=== PATIENT | female | born 1980 | race Caucasian/White ===

== ENCOUNTER 2019-02-22 16:39 | Emergency (ER) | payer BC ==
[2019-02-22] MEDS ORDERED: LACTATED RINGERS SOLUTION 1000 ML INFUS.BAG IV ONE ×2 (16:43→17:30)
[2019-02-22] MEDS ORDERED: ACETAMINOPHEN 1000 MG/100 ML VIAL (NON FORMULARY) IVPB ONE (16:43)
--- NOTE | 2019-02-22 16:53 | PDOC ---
Attending Attestation - Resident Resident Name: Ryan Almanza - ED Attending Attestation I have performed the following: I have examined & evaluated the patient, The case was reviewed & discussed with the resident, I agree w/resident's findings & plan, Exceptions are as noted - HPI HPI: 38 yo F no significant PMH presents with abdominal cramping associated with N/V/ D since 4:30 this morning. +Fever, chills, malaise. No cough, congestion. Her child at home has diarrhea but it is not as severe, and no vomiting. Emesis is NBNB. No recent travel. - Physicial Exam PE: GENERAL: Awake, alert, and fully oriented, in no acute distress. +Mild pallor HEAD: No signs of trauma EYES: PERRLA, EOMI, sclera anicteric, conjunctiva clear ENT: Auricles normal inspection, hearing grossly normal, nares patent, oropharynx clear without exudates. Dry mucosa NECK: Normal ROM, supple, no lymphadenopathy, JVD, or masses LUNGS: Breath sounds equal, clear to auscultation bilaterally. No wheezes, and no crackles HEART: Tachycardic with regular rhythm, normal S1 and S2, no murmurs, rubs or gallops ABDOMEN: Soft, nontender, normoactive bowel sounds. No guarding, no rebound. No masses EXTREMITIES: Normal range of motion, no edema. No clubbing or cyanosis. No cords, erythema, or tenderness NEUROLOGICAL: Cranial nerves II through XII grossly intact. Normal speech, normal gait. Motor and sensation intact SKIN: Warm, Dry, normal turgor, no rashes or lesions noted. - Medical Decision Making Abdomen is soft and benign. In light of sick contact at home, suspect this is likely a viral syndrome. Will give plenty of IV hydration, check labs, and give antipyretic. Likely DC home.
[2019-02-22 16:57] VITALS: BMI 25.0
--- NOTE | 2019-02-22 17:16 | PDOC ---
History of Present Illness - General Chief Complaint: Vomiting/Diarrhea Stated Complaint: FEVER,DIARHEA,VOMINGING,BLOOD IN URINE,LBA,LABD PA Time Seen by Provider: 02/22/19 16:41 History Source: Patient Exam Limitations: No Limitations - History of Present Illness Initial Comments: HPI: 38 y/o female presenting to ER complaining of LLQ abdominal pain with nausea , vomiting, and diarrhea since approx. 4:30 am this morning. Emesis described as nonblood, nonbilious and yellow in color. Endorses fever (approx 101, orally) , chills, and blood in urine (thinks it may be from wiping). Denies observing blood in stool. Pediatric child in household also with diarrheal symptoms but not as severe. Pt denies recent travel. PCP: Dr. 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 Multiple kids always sick. - Female partner Medical Hx: - Taking Synthroid while attempting to get (has not undergoing IVF/ insemination) - Prothrombin Clotting Disorder (thinks Factor V Leiden) Review of Systems: In addition to that documented in the HPI above, the additional ROS was obtained : Constitutional: Endorses fevers and chills Head: Denies vision changes ENMT: Denies sore throat CV: Denies chest pain Resp: Denies SOB GI: Per HPI : Denies painful urination, increased urinary frequency, vaginal discharge MSK: Denies recent trauma Skin: Denies new rashes Neuro: Denies new numbness or tingling or weakness Endocrine: Denies polyuria Heme: Denies bleeding or bruising Physical Examination: Constitutional: Well-developed, well-nourished, sickly appearing adult female in no acute distress or obvious discomfort. Found semi-fowlers on hospital bed. Alert and oriented x4. Answered all questions appropriately and completely. Speech was non-labored, non-pressured. Head: Normocephalic. No obvious external signs of trauma. Eyes: Sclerae white. Conjunctiva moist and not injected. Ears: Hearing grossly intact. Nose: No nasal discharge. Throat: Oral cavity and pharynx normal. No inflammation, swelling, exudate, or lesions. Teeth and gingiva in good general condition. Moist mucosal membranes. Neck: Supple, trachea is midline. Cardiovascular / Chest: Tachycardic rate with regular rhythm. No murmur, rubs, clicks, or gallops. Peripheral pulses: radial pulses full. Respiratory: Breathing unlabored. Equal chest rise and fall. Clear to auscultation bilaterally. No stridor, no wheezing, no rhonchi. Gastrointestinal: abdomen is tender in LLQ without rebound or guarding, otherwise soft and non-distended. No hepatosplenemegaly. No pulsatile masses. No overlying skin lesions or obvious signs of trauma. Neuro: Alert and oriented. Moving all four extremities spontaneously. Skin: Feverish but dry and intact. No bruising, rashes, or other lesions. : No R or L CVA tenderness. Psych: Affect: appropriate. Mood: normal. MDM: *Reviewed vital signs, nursing notes, and prior visit documentation (if available). 38 y/o previously healthy female presenting with N/V/D, LLQ abd pain, tachycardia, febrile, and borderline hypotension (with maintained MAP). Physical exam as described above. Suspect possible UTI given hematuria. Suspect possible viral gastroenteritis with dehydration. Low suspicion for diverticulitis. ED sepsis order set initiated. Ordered LR IVFB and Tylenol for symptom relief. CBC revealed mild leukocytosis. Mild hypokalemia, suspect secondary to GI loss. Will likely autoregulate without replenishment. UA unremarkable for pyuria, nitrites, or leukocyte esterase. Urine culture pending. Low suspicion for urosepsis. Lactic acid not elevated. Continue to suspect acute viral gastroenteritis. Tachycardia persisting despite 2 L. Ordered 3rd IVFB of D5LR for glucose replenishment. Multiple episodes of diarrhea and persistent tachycardia despite 3L IVF. Ordered Imodium. Pt signed out to Dr. Reilly after she was verbally appraised of the pts HPI, current ED course, and plan of management. Will trend vitals. Dispo pending. Ryan Almanza M.D., PGY1 Emergency Medicine Resident Past History - Past Medical History Allergies/Adverse Reactions: Allergies Allergy/AdvReac Type Severity Reaction Status Date / Time No Known Allergies Allergy Verified 02/22/19 16:46 Home Medications: Ambulatory Orders Ergocalciferol (Vitamin D2) [Vitamin D2] 50,000 unit PO WEEKLY 02/22/19 Levothyroxine [Synthroid -] 50 mcg PO DAILY 02/22/19 COPD: No Seizures: Yes (HYPO) - Suicide/Smoking/Psychosocial Hx Smoking History: Never smoked Hx Alcohol Use: No Drug/Substance Use Hx: No *Physical Exam - Vital Signs Last Vital Signs Temp Pulse Resp BP Pulse Ox 100.7 F H 136 H 20 107/82 96 02/22/19 16:40 02/22/19 16:40 02/22/19 16:40 02/22/19 16:40 02/22/19 16:40 Vital Signs - Vital Signs #1 Blood Pressure: 106/64 MAP: 78 BP Location: Left Arm Blood Pressure Position: Supine Pulse Rate: 107 O2 Sat by Pulse Oximetry (%): 96 Oxygen Delivery Method: Room Air ED Treatment Course - LABORATORY CBC & Chemistry Diagram: 02/22/19 12:57 02/22/19 17:15 - ADDITIONAL ORDERS Additional order review: Laboratory Results 02/22/19 16:55 Urine HCG, Qual Negative *DC/Admit/Observation/Transfer Diagnosis at time of Disposition: Nausea vomiting and diarrhea - Discharge Dispostion Condition at time of disposition: Fair - Referrals Referrals: Annabel Pearson MD [Primary Care Provider] - - Patient Instructions - Post Discharge Activity
[2019-02-22] MEDS ORDERED: ACETAMINOPHEN INJECTION 100 ML IVPB ONE (17:17)
[2019-02-22 17:25] LABS: HEMATOCRIT 37.5 % (32.4-45.2); HEMOGLOBIN 12.6 GM/dl (10.7-15.3); LYMPH % 4.1 % (8-40); MCH 29.4 pg (25.7-33.7); MCHC 33.5 g/dl (32.0-36.0); MEAN CELL VOLUME 87.9 fl (80-96); MONO % 6.2 % (3.8-10.2); NEUT % 89.7 % (42.8-82.8); PLATELET COUNT 255 K/MM3 (134-434); RBC 4.27 M/mm3 (3.60-5.2); RDW 12.1 % (11.6-15.6); WHITE BLOOD COUNT 12.2 K/mm3 (4.0-10.8)
[2019-02-22 17:43] LABS: ACTIVATED PTT 23.9 SECONDS (25.2-36.5)
[2019-02-22 17:44] LABS: ALBUMIN 3.8 g/dl (3.4-5.0); BILIRUBIN,TOTAL 0.5 mg/dl (0.2-1); CALCIUM 8.4 mg/dl (8.5-10); CREATININE 0.7 mg/dl (0.55-1.3); POTASSIUM 3.3 mmol/L (3.5-5.1); TOT PROT 6.8 g/dl (6.4-8.2)
[2019-02-22 17:47] LABS: INR 1.27 (0.82-1.09); PROTHROMBIN TIME (PATIENT) 14.2 SEC (10.2-13.0)
[2019-02-22] MEDS ORDERED: DEXTROSE 5%-LACTATED RINGERS 1,000 ML IV SCH (18:00)
[2019-02-22 18:04] LABS: AMORP URATES 3+ /hpf (NONE SEEN); EPITHELIAL CELLS RARE /hpf
[2019-02-22 18:22] LABS: VENOUS PC02 35.9 mmHg (41-51); VENOUS PH 7.45 (7.31-7.41); VENOUS PO2 36.4 mmHg (30-40)
[2019-02-22] MEDS ORDERED: LOPERAMIDE HCL 2 MG CAPSULE PO ONE (19:08)
[2019-02-22] MEDS ORDERED: LOPERAMIDE HCL 2 MG CAPSULE ONE (19:16)
[2019-02-22] MEDS ORDERED: KETOROLAC TROMETHAMINE 30 MG/1 ML VIAL IVPUSH ONE (19:44)
[2019-02-22] MEDS ORDERED: KETOROLAC TROMETHAMINE 30 MG/1 ML VIAL ONE (19:45)
--- NOTE | 2019-02-22 19:46 | PDOC ---
*Physical Exam - Vital Signs Last Vital Signs Temp Pulse Resp BP Pulse Ox 99.4 F 107 H 22 H 106/64 96 02/22/19 18:35 02/22/19 19:10 02/22/19 18:32 02/22/19 19:10 02/22/19 19:10 ED Treatment Course - LABORATORY CBC & Chemistry Diagram: 02/22/19 12:57 02/22/19 17:15 - ADDITIONAL ORDERS Additional order review: Laboratory Results 02/22/19 02/22/19 02/22/19 17:15 17:15 17:15 PT with INR 14.2 H INR 1.27 H PTT (Actin FS) 23.9 L VBG pH POC VBG pCO2 POC VBG pO2 VBG HCO3 VBG O2 Sat (Brian) VBG Base Excess Sodium 136 Potassium 3.3 L Chloride 103 Carbon Dioxide 21 Anion Gap 12 BUN 11 Creatinine 0.7 Est GFR (CKD-EPI)AfAm 127.39 Est GFR (CKD-EPI)NonAf 109.91 Random Glucose 123 H Lactic Acid Calcium 8.4 L Total Bilirubin 0.5 AST 26 ALT 33 Alkaline Phosphatase 47 Troponin I Cancelled Total Protein 6.8 Albumin 3.8 Urine Color Urine Appearance Urine pH Urine Protein Urine Glucose (UA) Urine Ketones Urine Blood Urine Nitrite Urine Bilirubin Urine Urobilinogen Ur Leukocyte Esterase Urine RBC Ur Transition Epith Cell Amorphous Urates Urine HCG, Qual 02/22/19 02/22/19 02/22/19 17:00 17:00 16:55 PT with INR INR PTT (Actin FS) VBG pH 7.45 H POC VBG pCO2 35.9 L POC VBG pO2 36.4 VBG HCO3 24.3 VBG O2 Sat (Brian) 65.3 L VBG Base Excess 1.3 Sodium Potassium Chloride Carbon Dioxide Anion Gap BUN Creatinine Est GFR (CKD-EPI)AfAm Est GFR (CKD-EPI)NonAf Random Glucose Lactic Acid Calcium Total Bilirubin AST ALT Alkaline Phosphatase Troponin I < 0.03 Total Protein Albumin Urine Color Urine Appearance Urine pH Urine Protein Urine Glucose (UA) Urine Ketones Urine Blood Urine Nitrite Urine Bilirubin Urine Urobilinogen Ur Leukocyte Esterase Urine RBC Ur Transition Epith Cell Amorphous Urates Urine HCG, Qual Negative 02/22/19 02/22/19 16:55 12:57 PT with INR INR PTT (Actin FS) VBG pH POC VBG pCO2 POC VBG pO2 VBG HCO3 VBG O2 Sat (Brian) VBG Base Excess Sodium Potassium Chloride Carbon Dioxide Anion Gap BUN Creatinine Est GFR (CKD-EPI)AfAm Est GFR (CKD-EPI)NonAf Random Glucose Lactic Acid 1.5 Calcium Total Bilirubin AST ALT Alkaline Phosphatase Troponin I Total Protein Albumin Urine Color Yellow Urine Appearance Slightly Urine pH 5.5 Urine Protein 1+ H Urine Glucose (UA) Negative Urine Ketones Negative Urine Blood 2+ H Urine Nitrite Negative Urine Bilirubin Negative Urine Urobilinogen 0.2 Ur Leukocyte Esterase Negative Urine RBC 2-5 Ur Transition Epith Cell Rare Amorphous Urates 3+ Urine HCG, Qual 02/22/19 12:57 RBC 4.27 MCV 87.9 MCHC 33.5 RDW 12.1 MPV 8.0 Neutrophils % 89.7 H Lymphocytes % 4.1 L Monocytes % 6.2 Eosinophils % 0.0 Basophils % 0.0 - Medications Given in the ED: ED Medications Discontinued Medications Generic Name Dose Route Start Last Admin Trade Name Freq PRN Reason Stop Dose Admin Acetaminophen 1,000 mg 02/22/19 16:43 02/22/19 17:20 Ofirmev Injection - IVPB 02/22/19 16:44 1,000 mg ONCE ONE Administration Lactated Ringer's 1,000 ml 02/22/19 16:43 02/22/19 17:16 Lactated Ringers Solution IV 02/22/19 16:44 1,000 ml ONCE ONE Administration Lactated Ringer's 1,000 ml 02/22/19 17:30 02/22/19 17:33 Lactated Ringers Solution IV 02/22/19 17:31 1,000 ml ONCE ONE Administration Loperamide HCl 4 mg 02/22/19 19:08 02/22/19 19:24 Imodium - PO 02/22/19 19:09 4 mg ONCE ONE Administration Progress Note - Progress Note Progress Note: Care of this patient was transferred to me from Dr. Muniz and the EM residents at 1900 hrs. Patient is a 38-year-old female comes in complaining of diarrhea. Patient was quite dehydrated when she got here as well as tachycardic with a low-grade fever. Patient has been hydrated with 3 L of fluid and is beginning to feel much better but does still have diarrhea. Patient was just given Imodium 4 mg. Will watch for the diarrhea to slow down and possibly give another Imodium and discharge patient home Reevaluation 2030: Patient feels much better. Patient's had no more diarrhea since the Imodium. Patient now well-hydrated and will be discharged home. *DC/Admit/Observation/Transfer Diagnosis at time of Disposition: Nausea vomiting and diarrhea - Discharge Dispostion Disposition: HOME Condition at time of disposition: Fair Decision to Admit order: No - Referrals Referrals: Annabel Pearson MD [Primary Care Provider] - - Patient Instructions Additional Instructions: If needed U can take additional Imodium up to 4 tablets a day. Take one tablet after each episode of diarrhea. Return to the emergency department immediately with ANY new, persistent or worsening symptoms. Continue any medications as previously prescribed by your physician. You should follow up with your primary doctor as soon as possible regarding today's emergency department visit. . Please make sure your doctor reviews the results of your emergency evaluation. Thank you for coming to the Emergency Department today for your care. It was a pleasure to see you today. Please note that your evaluation is INCOMPLETE until you follow-up with your doctor. - Post Discharge Activity
[2019-02-22 20:34] VITALS: BP 101/56; PULSE 91; TEMP 98.8
--- NOTE | 2019-02-23 12:22 | EKG ---
Test Reason : Blood Pressure : / mmHG Vent. Rate : 115 BPM Atrial Rate : 115 BPM P-R Int : 138 ms QRS Dur : 092 ms QT Int : 300 ms P-R-T Axes : 042 -18 039 degrees QTc Int : 415 ms SINUS TACHYCARDIA LEFT AXIS DEVIATION NO PREVIOUS ECGS AVAILABLE Confirmed by SABRINA ALLAN MD ([id number]) on 02/23/2019 12:21:37 PM Referred By: CARLOS CONROY Confirmed By:SABRINA ALLAN MD
--- NOTE | 2019-02-23 12:47 | PDOC ---
Patient Follow-up (Call Back) - Post ED Follow - Up Chief Complaint: Vomiting/Diarrhea Condition at time of discharge: Fair Disposition at time of original discharge: HOME Reason for Call Back: Abnwl. Microbiology Signs/Symptoms Improved: Yes - Disposition Rx Needed: No Additional Instructions/Notes: Pt had 1 set of blood cultures from yesterday showing gram + in clusters. pt clinically feels improved. no fevers or vomting anymore, still has diarrhea. we obtained another set of blood cultures to confirm. return precautions were dw patient
== END 2019-02-22 20:45 | disposition home or self-care (01) ==
LOC: FER 16:39 → SUPCPDRO 16:39 → FER 20:56
PROC: 3E0333Z Introduction of Anti-inflammatory into Peripheral Vein, Percutaneous Approach (ICD-10-PCS; principal; 2019-02-22)
PROC: 3E033NZ Introduction of Analgesics, Hypnotics, Sedatives into Peripheral Vein, Percutaneous Approach (ICD-10-PCS; 2019-02-22)
PROC: 3E0337Z Introduction of Electrolytic and Water Balance Substance into Peripheral Vein, Percutaneous Approach (ICD-10-PCS; 2019-02-22)
DX: R11.2 Nausea with vomiting, unspecified (principal); R19.7 Diarrhea, unspecified
CPT/HCPCS: 36415; 80053; 81003; 81015; 82803; 83605; 84484; 84703; 85025; 85610; 85730; 87040; 87086; 87186; 93005; 99285-25; J0131

== ENCOUNTER 2019-02-25 11:42 | Emergency (ER) | payer BC ==
[~2019-02-25 11:42] MED LIST: CALCIUM CARBONATE 650 MG TABLET PO ONE
[2019-02-25 11:45] VITALS: BP 130/81; PULSE 77; TEMP 98.6; BMI 25.0
--- NOTE | 2019-02-25 11:45 | PDOC ---
History of Present Illness - General Chief Complaint: Pain, Acute Stated Complaint: ABD PAIN Time Seen by Provider: 02/25/19 11:45 History Source: Patient Exam Limitations: No Limitations - History of Present Illness Initial Comments: 02/25/19 11:58 38 year old female with PMH C diff colitis presented to ED for nausea/diarrhea/ epigastric pain x6 days. Pt was seen in [facility] ED for nausea/vomiting/diarrhea x6 days ago, was discharged. Pt admitted to fever 102F today, reported she did not take Tylenol because she didnt want to take it on an empty stomach. Pt stated she had >10 episodes of loose, watery, green diarrhea today. She denied vomiting , but reported feeling an epigastric burning with acid sensation. Allergies: NKDA Past History - Past Medical History Allergies/Adverse Reactions: Allergies Allergy/AdvReac Type Severity Reaction Status Date / Time No Known Allergies Allergy Verified 02/25/19 11:43 Home Medications: Ambulatory Orders Ergocalciferol (Vitamin D2) [Vitamin D2] 50,000 unit PO WEEKLY 02/22/19 Levothyroxine [Synthroid -] 50 mcg PO DAILY 02/22/19 Famotidine [Pepcid -] 20 mg PO BID #14 tablet 02/25/19 Ondansetron [Zofran Odt -] 4 mg SL TID #9 od.tablet 02/25/19 COPD: No Seizures: Yes (HYPO) - Suicide/Smoking/Psychosocial Hx Smoking History: Never smoked Hx Alcohol Use: No Drug/Substance Use Hx: No Review of Systems - Review of Systems Able to Perform ROS?: Yes Comments:: 02/25/19 11:59 General: admitted to fever, chills, generalized weakness. HEENT: denied sore throat, rhinorrhea, ear pain. Heart: denied chest pain, palpitations, syncope, diaphoresis. Respiratory: denied shortness of breath, cough, sputum production, hemoptysis. Abdomen: admitted to abdominal pain, nausea, diarrhea. denied vomiting, constipation, blood in stool. : denied dysuria, increased urinary frequency, hematuria, urinary incontinence , flank pain. Back: denied back pain. Musculoskeletal: denied joint pain, muscle pain, joint swelling. Neurological: denied headache, dizziness, numbness, tingling, weakness. Skin: denied rash, laceration, abrasion. *Physical Exam - Physical Exam Comments: 02/25/19 12:00 Constitutional: Well-nourished, Well-developed, appearing stated age. appears dehydrated. HEENT: head is normocephalic, atraumatic. EOMI. PERRLA. dry mucous membranes. Neck: supple. Full ROM. Heart: regular rhythm. no murmurs, rubs or gallops. Lungs: clear to auscultation bilaterally. no crackles, rhonchi or wheezing. no stridor. Abdomen: soft, flat. tenderness to palpation of epigastrium. murphys negative. mcburneys point nontender. increased bowel sounds. no rebound, guarding, masses. Extremities: peripheral pulses intact. no lower extremity edema. Neurological: CN 2-12 grossly intact. moves all four extremities. Psych: awake, alert, oriented x3. follows commands. answers questions appropriately. ED Treatment Course - LABORATORY CBC & Chemistry Diagram: 02/25/19 12:20 02/25/19 12:20 Medical Decision Making - Medical Decision Making 02/25/19 12:00 38 year old female with above PMH presented to ED for nausea, epigastric pain, green diarrhea. Initial Vital Signs Temp Pulse Resp BP Pulse Ox 98.6 F 77 15 130/81 99 02/25/19 11:43 02/25/19 11:43 02/25/19 11:43 02/25/19 11:43 02/25/19 11:43 Afebrile. No tachycardia. No tachypnea. Mild hypertension. No hypoxia on room air. Labs ordered: CBC, CMP, serum , lipase, stool culture Imaging ordered: none Medications ordered: tylenol IV, pepcid, maalox, zofran 4 mg IV, normal saline bolus 1000 cc 02/25/19 12:49 CBC WBC 5.7 K/mm3 (4.0-10.8) 02/25/19 12:20 RBC 4.47 M/mm3 (3.60-5.2) 02/25/19 12:20 Hgb 13.0 GM/dl (10.7-15.3) 02/25/19 12:20 Hct 38.5 % (32.4-45.2) 02/25/19 12:20 MCV 86.1 fl (80-96) 02/25/19 12:20 MCH 29.1 pg (25.7-33.7) 02/25/19 12:20 MCHC 33.8 g/dl (32.0-36.0) 02/25/19 12:20 RDW 11.6 % (11.6-15.6) 02/25/19 12:20 Plt Count 261 K/MM3 (134-434) 02/25/19 12:20 MPV 7.5 fl (7.5-11.1) 02/25/19 12:20 Absolute Neuts (auto) 4.0 K/mm3 02/25/19 12:20 Neutrophils % 70.0 % (42.8-82.8) 02/25/19 12:20 Lymphocytes % 15.2 % (8-40) 02/25/19 12:20 Monocytes % 14.7 % (3.8-10.2) H 02/25/19 12:20 Eosinophils % 0.0 % (0-4.5) 02/25/19 12:20 Basophils % 0.1 % (0-2.0) 02/25/19 12:20 No leukocytosis. No anemia. CMP Sodium 135 mmol/L (136-145) L 02/25/19 12:20 Potassium 3.0 mmol/L (3.5-5.1) L 02/25/19 12:20 Chloride 98 mmol/L (98-107) 02/25/19 12:20 Carbon Dioxide 24 mmol/L (21-32) 02/25/19 12:20 Anion Gap 13 MMOL/L (8-16) 02/25/19 12:20 BUN 6 mg/dl (7-18) L 02/25/19 12:20 Creatinine 0.7 mg/dl (0.55-1.3) 02/25/19 12:20 Est GFR (CKD-EPI)AfAm 127.39 02/25/19 12:20 Est GFR (CKD-EPI)NonAf 109.91 02/25/19 12:20 Random Glucose 102 mg/dl (74-106) 02/25/19 12:20 Calcium 8.0 mg/dl (8.5-10) L 02/25/19 12:20 Total Bilirubin 0.6 mg/dl (0.2-1) 02/25/19 12:20 AST 18 U/L (15-37) 02/25/19 12:20 ALT 18 U/L (13-61) 02/25/19 12:20 Alkaline Phosphatase 44 U/L (45-117) L 02/25/19 12:20 Total Protein 6.4 g/dl (6.4-8.2) 02/25/19 12:20 Albumin 3.3 g/dl (3.4-5.0) L 02/25/19 12:20 Mil dhyponatremia - pt is receiving IV fluids. Hypokalemia - pt is receiving IV fluids . No Jocelyne. Hypocalcemia No transaminitis. Medications ordered: KCL PO 40 mEq, KCL IV 10 mEq, calcium carbonate 650 mg PO once Labs added on: Magnesium Pt informed of results and agrees with plan for care. 02/25/19 13:27 Pt reassessed, reported improvement of symptoms. 02/25/19 13:36 Pt reported pain with potassium IV, drip was stopped for patient comfort. Pending magnesium/lipase. 02/25/19 13:41 Magnesium withi normal limits. Pt discharged. Discharge medications: Pepcid, Zofran *DC/Admit/Observation/Transfer Diagnosis at time of Disposition: Diarrhea, Epigastric pain, Hypokalemia, Hypocalcemia - Discharge Dispostion Disposition: HOME Condition at time of disposition: Improved Decision to Admit order: No - Prescriptions Prescriptions: Famotidine [Pepcid -] 20 mg PO BID #14 tablet Ondansetron [Zofran Odt -] 4 mg SL TID #9 od.tablet - Referrals Referrals: Annabel Pearson MD [Primary Care Provider] - Quan Martinez DO [Staff Physician] - Vasiliy Escalera MD [Staff Physician] - Han Lucero MD [Staff Physician] - James Lara MD [Staff Physician] - - Patient Instructions Printed Discharge Instructions: Falcon Diet, DI for Hypokalemia, DI for Diarrhea and Traveler's Diarrhea -- Adult, DI for Hypocalcemia Additional Instructions: You were seen today for diarrhea/abdominal pain. Your lab work showed you have low potassium and calcium, likely these electrolytes were lost in the diarrhea you have been having. Have these levels rechecked by your primary care doctor within a week. We replaced the electrolytes in the Emergency Department. Drink lots of gatorade/pedialyte throughout the day to stay hydrate and maintain your electrolytes. Eat foods high in potassium, like bananas. Eat a bland diet for the next 24-48 hours: bread, rice, toast, plain chicken, applesauce. Advance your diet as tolerated. Your stool culture will return in a few days. Take Tylenol over the counter for your pain/fever. Take as advised on label. Follow up with your primary care doctor within 3 days. Your care is not complete until you follow up. Follow up with a matrix worker within 3 days. Your care is not complete until you follow up. I have provided you with multiple referrals. Return to the Emergency Department for lightheadedness like you may pass out, chest pain, shortness of breath, palpitations, muscle cramping, fever>104F with tylenol use, fever>5 days, blood in stool or any other new, worsening or concerning symptoms. - Post Discharge Activity Forms/Work/School Notes: Back to Work
[2019-02-25] MEDS ORDERED: SODIUM CHLORIDE 1,000 ML IV STA (11:57)
[2019-02-25] MEDS ORDERED: ACETAMINOPHEN 1000 MG/100 ML VIAL (NON FORMULARY) IVPB ONE (11:57)
[2019-02-25] MEDS ORDERED: FAMOTIDINE 20 MG/50 ML IVPB 20 MG/50 ML MG IVPB ONE ×2 (11:57→12:21)
[2019-02-25] MEDS ORDERED: MAG HYDROX/AL HYDROX/SIMETH 30 ML UNIT-DOSE CUP PO ONE (11:57)
[2019-02-25] MEDS ORDERED: ONDANSETRON 4 MG/2 ML VIAL IVPUSH ONE (11:57)
[2019-02-25] MEDS ORDERED: MAG HYDROX/AL HYDROX/SIMETH 30 ML UNIT-DOSE CUP ONE (12:21)
[2019-02-25] MEDS ORDERED: ACETAMINOPHEN INJECTION 100 ML IVPB ONE (12:21)
[2019-02-25] MEDS ORDERED: ONDANSETRON 4 MG/2 ML VIAL ONE (12:21)
[2019-02-25 12:34] LABS: MEAN PLT VOLUME 7.5 fl (7.5-11.1); WHITE BLOOD COUNT 5.7 K/mm3 (4.0-10.8)
[2019-02-25 12:39] LABS: BASO % 0.1 % (0-2.0); HEMATOCRIT 38.5 % (32.4-45.2); LYMPH % 15.2 % (8-40); MCH 29.1 pg (25.7-33.7); MCHC 33.8 g/dl (32.0-36.0); MEAN CELL VOLUME 86.1 fl (80-96); MONO % 14.7 % (3.8-10.2); PLATELET COUNT 261 K/MM3 (134-434); RBC 4.47 M/mm3 (3.60-5.2); RDW 11.6 % (11.6-15.6)
[2019-02-25 12:42] LABS: ALBUMIN 3.3 g/dl (3.4-5.0); BILIRUBIN,TOTAL 0.6 mg/dl (0.2-1); CREATININE 0.7 mg/dl (0.55-1.3); TOT PROT 6.4 g/dl (6.4-8.2)
[2019-02-25] MEDS ORDERED: POTASSIUM CHLORIDE ORAL LIQUID 20 MEQ/15 ML PO ONE (12:50)
[2019-02-25] MEDS ORDERED: CALCIUM CHLORIDE 1 GM/10 ML *DISP.SYRIN IVPB ONE (12:55)
[2019-02-25] MEDS ORDERED: KCL 10 MEQ IVPB 10 MEQ/100 ML INFUS.BAG IVPB ONE (12:56)
[2019-02-25] MEDS ORDERED: POTASSIUM CHLORIDE TABS 20 MEQ TABLET.ER (FP) PO ONE (12:56)
[2019-02-25] MEDS ORDERED: POTASSIUM CHLORIDE TABS 10 MEQ TABLET.ER (FP) PO ONE (12:58)
[2019-02-25] MEDS ORDERED: KCL 10 MEQ IVPB 10 MEQ/100 ML INFUS.BAG IVPB SCH (13:00)
[2019-02-25 13:39] LABS: MAGNESIUM 1.9 mg/dL (1.8-2.4)
--- NOTE | 2019-02-25 13:58 | PDOC ---
Attending Attestation - Resident Resident Name: Joselin Santillan - ED Attending Attestation I have performed the following: I have examined & evaluated the patient, The case was reviewed & discussed with the resident, I agree w/resident's findings & plan, Exceptions are as noted - HPI HPI: 02/25/19 19:10 Reviewed Residents HPI - Physicial Exam PE: 02/25/19 19:10 Reviewed Residents PE - Medical Decision Making 02/25/19 19:10 38 years [place] past medical history to visits to the emergency department for persistent diarrhea. No red flags on patient's history no travel no recent antibiotics however given persistence of symptoms stool cultures have been sent. Laboratory analysis was notable for hypokalemia patient treated she will eat foods high in potassium and follow-up with her doctor in 2 days for repeat lab testing Feels much better after IV fluids hydration and antiemetics. She'll return to the ED for any severe worsening symptoms or for any concerns.
[2019-02-25] MEDS ORDERED: CALCIUM CARBONATE 650 MG TABLET PO SCH (14:00)
== END 2019-02-25 14:07 | disposition home or self-care (01) ==
LOC: FER 11:42
PROC: 3E033NZ Introduction of Analgesics, Hypnotics, Sedatives into Peripheral Vein, Percutaneous Approach (ICD-10-PCS; principal; 2019-02-25)
PROC: 3E033GC Introduction of Other Therapeutic Substance into Peripheral Vein, Percutaneous Approach (ICD-10-PCS; 2019-02-25)
PROC: 3E0337Z Introduction of Electrolytic and Water Balance Substance into Peripheral Vein, Percutaneous Approach (ICD-10-PCS; 2019-02-25)
DX: R19.7 Diarrhea, unspecified (principal); R10.13 Epigastric pain; E87.6 Hypokalemia; E83.51 Hypocalcemia; K52.89 Other specified noninfective gastroenteritis and colitis; R56.9 Unspecified convulsions
CPT/HCPCS: 36415; 80053; 83690; 83735; 85025; 87045; 87046; 87186; 99283-25; J0131; J7030

== ENCOUNTER 2021-03-24 17:29 | Emergency (ER) | payer BC, OTHER ==
[2021-03-24 17:35] VITALS: BP 132/80; PULSE 90; TEMP 97.8; BMI 25.7
[2021-03-24] MEDS ORDERED: DIPHTH,PERTUSS(ACELL),TET 0.5 ML DISP.SYRIN IM ONE ×2 (17:37→17:44)
== END 2021-03-24 18:50 | disposition home or self-care (01) ==
LOC: FER 17:29
PROC: 3E0234Z Introduction of Serum, Toxoid and Vaccine into Muscle, Percutaneous Approach (ICD-10-PCS; principal; 2021-03-24)
DX: S91.331A Puncture wound without foreign body, right foot, initial encounter (principal)
CPT/HCPCS: 73630-TC-RT-FY; 90715; 99284-25